=== PATIENT | male | born 1980 | race Caucasian/White ===

== ENCOUNTER 2020-04-25 21:23 | Emergency (ER) | payer SELFPAY ==
[2020-04-25 21:32] VITALS: BP 133/79
[2020-04-25] MEDS ORDERED: CLINDAMYCIN 900 MG/D5W RTU 900 MG/50 ML RTUPB IV ONE (22:43)
[2020-04-25] MEDS ORDERED: NORMAL SALINE 1000 ML 1,000 ML IV ONE (22:43)
--- NOTE | 2020-04-25 22:45 | ER Document Report ---
ED Medical Screen (RME) - General Chief Complaint: Skin Problem Stated Complaint: POSSIBLE INFECTION LEFT ARM Notes: Patient is a 39-year-old white male with no reported past medical history who presents to the emergency department the chief complaint of foreign body into the left antecubital fossa for about 3 weeks. States it is a piece of stainless steel. Reports he did try to treat the area with peroxide. States it is not improving but gradually worsening. He states now entire elbow is sore, red and draining from a medial site. States he is noticed satellite lesions popping up all over his arms. He states now he just feels "weird and fuzzy". Admits to tingling all over the face and lips. Denies any known fever, chills or night sweats. I have treated and performed a rapid initial assessment of this patient. A comprehensive ED assessment and evaluation of the patient, analysis of test results and completion of medical decision making process will be conducted by additional ED providers. PHYSICAL EXAMINATION: GENERAL: Well-appearing, well-nourished and in no acute distress. A&Ox4. Answers questions appropriately. Physical Exam - Vital signs Vitals: Temp Pulse Resp BP Pulse Ox 98.7 F 93 18 133/79 H 99 04/25/20 21:30 04/25/20 21:30 04/25/20 21:30 04/25/20 21:30 04/25/20 21:30 Course - Vital Signs Vital signs: Temp Pulse Resp BP Pulse Ox 98.7 F 93 18 133/79 H 99 04/25/20 21:30 04/25/20 21:30 04/25/20 21:30 04/25/20 21:30 04/25/20 21:30
[2020-04-25 23:18] LABS: ABSOLUTE BASOPHILS # (AUTO) 0.1 10^3/uL (0.0-0.2); ABSOLUTE EOSINOPHILS # (AUTO) 0.4 10^3/uL (0.0-0.6); ABSOLUTE LYMPHOCYTES (AUTO) 2.5 10^3/uL (0.5-4.7); ABSOLUTE MONOCYTES (AUTO) 0.7 10^3/uL (0.1-1.4); ABSOLUTE NEUT (AUTO) 5.6 10^3/uL (1.7-8.2); BASOPHILS % (AUTO) 1.3 % (0-2); HEMOGLOBIN 13.8 g/dL (13.5-17.0); LYMPHOCYTES % (AUTO) 27.2 % (13-45); MEAN CORPUSCULAR HEMOGLOBIN 29.9 pg (27.0-33.4); MEAN CORPUSCULAR HGB CONC 33.7 g/dL (32.0-36.0); MEAN CORPUSCULAR VOLUME 89 fl (80-97); MONOCYTES % (AUTO) 7.3 % (3-13); PLATELET COUNT 258 10^3/uL (150-450); RED BLOOD COUNT 4.62 10^6/uL (4.35-5.55); RED CELL DISTRIBUTION WIDTH 14.8 % (11.5-14.0); SEGMENTED NEUTROPHILS % (AUTO) 60.2 % (42-78); TOTAL CELLS COUNTED % (AUTO) 100 %; WHITE BLOOD COUNT 9.3 10^3/uL (4.0-10.5)
[2020-04-25 23:33] LABS: ALBUMIN 3.8 g/dL (3.5-5.0); ALKALINE PHOSPHATASE 85 U/L (38-126); ASPARTATE AMINO TRANSFERASE 21 U/L (17-59); BILIRUBIN,TOTAL 0.3 mg/dL (0.2-1.3); BLOOD UREA NITROGEN 15 mg/dL (7-20); CALCIUM 9.2 mg/dL (8.4-10.2); GLUCOSE 103 mg/dL (75-110)
--- NOTE | 2020-04-25 23:36 | RADIOLOGY REPORT (SQ) ---
EXAM DESCRIPTION: XR ELBOW 3 VIEWS COMPLETED DATE/TME: 04/25/2020 22:43 CLINICAL HISTORY: 39 years ,Male ? FB left medial AC region COMPARISON: None. TECHNIQUE: LEFT elbow, Three view FINDINGS: Four No acute fractures or dislocations are identified. No osseous destructive lesions. No evidence of joint effusion. There is a tiny metallic foreign object in the region of interest along the antecubital fossa measuring 6 mm IMPRESSION: Small foreign object in the antecubital fossa just deep to the skin surface along the ulnar aspect measuring 6 mm
[2020-04-25 23:38] LABS: ANION GAP 5 (5-19); CARBON DIOXIDE 29 mmol/L (22-30); CHLORIDE 104 mmol/L (98-107)
== END 2020-04-26 00:20 | disposition left against medical advice (07) ==
LOC: ER 21:23
DX: L53.9 Erythematous condition, unspecified (principal); Z53.20 Procedure and treatment not carried out because of patient's decision for unspecified reasons
CPT/HCPCS: 36415; 80053; 85025; 99281